=== PATIENT | female | born 1960 | race Caucasian/White ===

== ENCOUNTER 2022-01-16 11:28 | Emergency (ER) | payer OTHER ==
[~2022-01-16] VITALS: Ht 162.6 cm; Wt 68.0 kg
[2022-01-16] MEDS ORDERED: AMLO2.5T4 PO (11:39)
[2022-01-16] MEDS ORDERED: BENA20TA9 PO (11:39)
--- NOTE | 2022-01-16 11:45 | NUR ---
[facility]IB [facility], [facility], BP WAS 200/100MMHG, TOOK BENAZEPRIL THIS MORNING. C/O BACK OF NECK PAIN. AMBULATORY PLACED ON BED, AAOX4.
--- NOTE | 2022-01-16 11:55 | NUR ---
AT BED SIDE
[2022-01-16] MEDS ORDERED: KETOROLAC TROMETHAMINE INJ 30 MG/ML VIAL ONE (12:03)
[2022-01-16] MEDS ORDERED: TRAMADOL HCL 50 MG TABLET ONE (12:03)
[2022-01-16] MEDS: TRAMADOL HCL 50 MG TABLET PO ONE (12:05)
[2022-01-16] MEDS: KETOROLAC TROMETHAMINE INJ 30 MG/ML VIAL IM ONE (12:07)
[2022-01-16] MEDS ORDERED: TRAM50TA2 PO (12:43)
[2022-01-16] MEDS ORDERED: IBUP-1957 PO (12:43)
--- NOTE | 2022-01-16 12:52 | NUR ---
IV removed. Catheter intact and site benign. Pressure and 4x4 applied to site. No bleeding noted.Patient discharged to home in stable condition. Written and verbal after care instructions given. Patient verbalizes understanding of instruction.
[2022-01-16 12:53] VITALS: BP 183/97
== END 2022-01-16 12:54 | disposition home or self-care (01) ==
LOC: ER 11:38
DX: I10 Essential (primary) hypertension (principal); M54.6 Pain in thoracic spine; Z79.899 Other long term (current) drug therapy
CPT/HCPCS: 99283; 96372; J1885